=== PATIENT | male | born 1935 | race African-American/Black ===

== ENCOUNTER 2021-03-03 04:44 | Inpatient (IN) | payer MEDICARE ==
[~2021-03-03] VITALS: Ht 185.4 cm; Wt 83.6 kg
[2021-03-03] MEDS ORDERED: SODIUM CHLORIDE 0.9% 1,000 ML IV ONE (05:15)
[2021-03-03 05:16] LABS: BASOPHILS % (AUTO) 0.6 % (0.0-2.0); EOSINOPHILS % (AUTO) 1.2 % (1.0-6.0); HEMOGLOBIN 13.7 g/dL (13.5-17.5); LYMPHOCYTES # (AUTO) 2.9 K/uL (1.0-4.8); LYMPHOCYTES % (AUTO) 34.2 % (22.0-44.0); MEAN CORPUSCULAR HEMOGLOBIN 27.2 pg (26.0-34.0); MEAN CORPUSCULAR HGB CONC 33.5 G/dL (31.0-37.0); MEAN CORPUSCULAR VOLUME 81 fL (80-100); MONOCYTES # (AUTO) 0.9 K/uL (0.1-1.0); MONOCYTES % (AUTO) 10.6 % (2.0-9.0); NEUTROPHILS # (AUTO) 4.5 K/uL (1.8-7.7); NEUTROPHILS % (AUTO) 53.4 % (40.0-70.0); PLATELET COUNT (AUTO) 521 K/uL (150-450); RED BLOOD CELL COUNT(AUTO) 5.05 MIL/uL (4.50-5.90); RED CELL DISTRIBUTION WIDTH 13.6 % (11.5-14.5)
[2021-03-03 05:24] LABS: ANION GAP 12 mmol/L (8-16); CALCIUM, TOTAL 9.3 mg/dL (8.8-10.5); CARBON DIOXIDE 25 mmol/L (22-29); CHLORIDE 98 mmol/L (98-107); CREATININE 1.56 mg/dL (0.60-1.30); GLOMERULAR FILTR. RATE CALC 43 mL/min (>60); GLUCOSE,RANDOM 215 mg/dL (70-110); POTASSIUM 4.4 mmol/L (3.5-5.1); SODIUM SERUM 135 mmol/L (136-145); UREA NITROGEN, BLOOD 16 mg/dL (7-18)
[2021-03-03 05:29] LABS: INR 1.1 (0.9-1.1); PROTHROMBIN TIME 11.5 SEC (9.4-11.6)
[2021-03-03 05:30] LABS: ALANINE AMINOTRANSFERASE 75 U/L (12-78); ALBUMIN 2.6 g/dL (3.4-5.0); ALKALINE PHOSPHATASE 101 U/L (46-116); ASPARTATE AMINOTRANSFERASE 39 U/L (15-37); BILIRUBIN,TOTAL 0.7 mg/dL (0.1-1.0); CREATINE KINASE, TOTAL ONLY 54 U/L (39-308); TOTAL PROTEIN, SERUM 7.9 g/dL (6.4-8.2)
[2021-03-03 05:45] LABS: COVID AG,FIA SOURCE NASAL SWAB
[2021-03-03 05:45] LABS: B-TYPE NATRIURETIC PEPTIDE 21 pg/mL (0-100)
[2021-03-03] MEDS ORDERED: LIDOCAINE 1% 10 ML VIAL ONE (05:45)
[2021-03-03 06:23] LABS: LACTIC ACID 4.1 mmol/L (0.4-2.0)
[2021-03-03] MEDS ORDERED: ONDANSETRON HCL 4 MG/2 ML VIAL IVP ONE (07:45)
[2021-03-03] MEDS ORDERED: ONDANSETRON HCL 4 MG/2 ML VIAL IVP PRN ×2 (07:45→22:00)
[2021-03-03] MEDS: MORPHINE SULFATE 2 MG/ML SYRINGE IVP PRN ×2 (07:49→15:30)
[2021-03-03 11:09] LABS: APPEARANCE,URINE CLEAR (CLEAR); BILIRUBIN,URINE NEGATIVE (NEGATIVE); GLUCOSE, URINE (UA) NEGATIVE (NEGATIVE); KETONES,URINE 15 mg/dL (NEGATIVE); LEUKOCYTE ESTERASE ,URINE NEGATIVE (NEGATIVE); NITRATE,URINE NEGATIVE (NEGATIVE); OCCULT BLOOD,URINE NEGATIVE (NEGATIVE); PROTEIN,URINE NEGATIVE (NEGATIVE)
[2021-03-03 11:21] LABS: GLUCOSE,POINT OF CARE 121 MG/DL (70-110)
[2021-03-03 16:24] VITALS: BP 133/72
[2021-03-03] MEDS ORDERED: DEXTROSE 50%-WATER 25 GM/50 ML SYRINGE IVP PRN ×2 (18:15→22:00)
[2021-03-03] MEDS: DEXAMETHASONE 4 MG TABLET PO SCH (18:25)
[2021-03-03 18:41] LABS: GLUCOMETER DEV NAME(LOC) 5N.1C; GLUCOSE,POINT OF CARE 117 MG/DL (70-110)
[2021-03-03 19:59] VITALS: BP 126/82
[2021-03-03] MEDS: INSULIN LISPRO 100 UNITS/ML SQ PRN (21:06)
[2021-03-03] MEDS ORDERED: IPRATROPIUM BROMIDE 0.5 MG/2.5 ML NEB SOLUTION NEB PRN (22:00)
[2021-03-03] MEDS ORDERED: ACETAMINOPHEN 325 MG TABLET PO PRN ×2 (22:00→22:15)
[2021-03-03] MEDS ORDERED: BISACODYL 10 MG RECTAL RECTAL SUPPOSITORY PR PRN (22:00)
[2021-03-03] MEDS ORDERED: ALBUTEROL SULFATE 2.5 MG/0.5 ML NEB SOLUTION NEB PRN (22:00)
[2021-03-03] MEDS ORDERED: ZOLPIDEM TARTRATE 5 MG TABLET PO PRN (22:00)
[2021-03-03] MEDS ORDERED: MAGNESIUM HYDROXIDE SUSPENSION 30 ML UDCUP PO PRN (22:00)
[2021-03-03 23:04] VITALS: BP 140/95
[2021-03-03] MEDS ORDERED: ASPI-1450 PO (23:14)
[2021-03-03] MEDS ORDERED: AMLO-257 PO (23:14)
[2021-03-03] MEDS ORDERED: SIMV-260 PO (23:14)
[2021-03-03] MEDS ORDERED: CHOL200016 PO (23:14)
[2021-03-03] MEDS ORDERED: GLIP10 PO (23:14)
[2021-03-03] MEDS ORDERED: SPIR-37 PO (23:14)
[2021-03-03] MEDS: GuaiFENesin/D-METHORPHAN [SUGAR-FREE] 200-20MG/10 ML SYRUP UDCUP PO PRN (23:21)
[2021-03-03] MEDS: HEPARIN SODIUM,PORCINE 5,000 UNITS/ML VIAL SQ SCH (23:22)
[2021-03-04 04:18] VITALS: BP 145/75
[2021-03-04] MEDS: INSULIN LISPRO 100 UNITS/ML SQ PRN ×3 (05:45→17:36)
[2021-03-04 07:21] LABS: GLUCOMETER DEV NAME(LOC) 5N.1C; GLUCOSE,POINT OF CARE 144 MG/DL (70-110)
[2021-03-04 07:21] LABS: GLUCOMETER DEV NAME(LOC) 5N.1C; GLUCOSE,POINT OF CARE 166 MG/DL (70-110)
[2021-03-04] MEDS: DEXAMETHASONE 4 MG TABLET PO SCH (08:23)
[2021-03-04] MEDS: PANTOPRAZOLE SODIUM 40 MG/VIAL IVP SCH (08:23)
[2021-03-04] MEDS: DOCUSATE SODIUM 100 MG CAPSULE PO SCH ×2 (08:23→21:55)
[2021-03-04] MEDS: HEPARIN SODIUM,PORCINE 5,000 UNITS/ML VIAL SQ SCH ×2 (08:23→15:59)
[2021-03-04 09:13] VITALS: BP 131/84
[2021-03-04 12:42] LABS: GLUCOMETER DEV NAME(LOC) 5S.1; GLUCOSE,POINT OF CARE 163 MG/DL (70-110)
[2021-03-04 12:46] VITALS: BP 148/82
[2021-03-04] MEDS: GuaiFENesin/D-METHORPHAN [SUGAR-FREE] 200-20MG/10 ML SYRUP UDCUP PO PRN (13:43)
[2021-03-04 16:00] VITALS: BP 150/92
[2021-03-04 18:12] LABS: GLUCOMETER DEV NAME(LOC) 5S.1; GLUCOSE,POINT OF CARE 183 MG/DL (70-110)
[2021-03-04] MEDS: MORPHINE SULFATE 2 MG/ML SYRINGE IVP PRN (19:04)
[2021-03-04 19:29] VITALS: BP 127/60
[2021-03-04] MEDS ORDERED: BENZONATATE 100 MG CAPSULE PO PRN (20:00)
[2021-03-04 21:51] LABS: GLUCOMETER DEV NAME(LOC) 5N.1C; GLUCOSE,POINT OF CARE 151 MG/DL (70-110)
[2021-03-04] MEDS: GuaiFENesin/D-METHORPHAN [SUGAR-FREE] 200-20MG/10 ML SYRUP UDCUP PO SCH (21:55)
[2021-03-04 23:24] VITALS: BP 149/81
[2021-03-05] MEDS: GuaiFENesin/D-METHORPHAN [SUGAR-FREE] 200-20MG/10 ML SYRUP UDCUP PO SCH ×6 (00:19→20:00)
[2021-03-05] MEDS: HEPARIN SODIUM,PORCINE 5,000 UNITS/ML VIAL SQ SCH ×3 (00:20→15:52)
[2021-03-05] MEDS: IPRATROPIUM BROMIDE 0.5 MG/2.5 ML NEB SOLUTION NEB SCH ×5 (00:24→20:13)
[2021-03-05] MEDS: ALBUTEROL SULFATE 2.5 MG/0.5 ML NEB SOLUTION NEB SCH ×5 (00:24→20:13)
[2021-03-05] MEDS: MORPHINE SULFATE 2 MG/ML SYRINGE IVP PRN ×2 (02:08→08:13)
[2021-03-05 03:35] VITALS: BP 124/81
[2021-03-05 06:41] LABS: GLUCOMETER DEV NAME(LOC) 5S.1; GLUCOSE,POINT OF CARE 161 MG/DL (70-110)
[2021-03-05] MEDS: BENZONATATE 100 MG CAPSULE PO SCH ×3 (07:44→20:35)
[2021-03-05] MEDS: DOCUSATE SODIUM 100 MG CAPSULE PO SCH ×2 (07:44→20:35)
[2021-03-05] MEDS: DEXAMETHASONE 4 MG TABLET PO SCH (07:44)
[2021-03-05 07:55] VITALS: BP 135/78
[2021-03-05] MEDS: PANTOPRAZOLE SODIUM 40 MG/VIAL IVP SCH (08:09)
[2021-03-05 08:43] LABS: ANION GAP 7 mmol/L (8-16); CALCIUM, TOTAL 9.4 mg/dL (8.8-10.5); CARBON DIOXIDE 28 mmol/L (22-29); CHLORIDE 101 mmol/L (98-107); CREATININE 1.32 mg/dL (0.60-1.30); GLUCOSE,RANDOM 200 mg/dL (70-110); SODIUM SERUM 136 mmol/L (136-145); UREA NITROGEN, BLOOD 24 mg/dL (7-18)
[2021-03-05 09:00] LABS: ALANINE AMINOTRANSFERASE 46 U/L (12-78); ALBUMIN 2.5 g/dL (3.4-5.0); ALKALINE PHOSPHATASE 82 U/L (46-116); ASPARTATE AMINOTRANSFERASE 19 U/L (15-37); BILIRUBIN,TOTAL 0.5 mg/dL (0.1-1.0); C-REACTIVE PROTEIN QUANT 5.38 mg/dL (0.00-0.30); CREATINE KINASE, TOTAL ONLY 56 U/L (39-308); FERRITIN 962 ng/mL (26-388); LACTATE DEHYDROGENASE 235 U/L (85-227); TOTAL PROTEIN, SERUM 7.8 g/dL (6.4-8.2)
[2021-03-05] MEDS ORDERED: BENZONATATE 100 MG CAPSULE PO SCH (09:00)
[2021-03-05 09:06] LABS: GLOMERULAR FILTR. RATE CALC > 60 mL/min (>60)
[2021-03-05 11:18] VITALS: BP 115/78
[2021-03-05] MEDS: DEXAMETHASONE SOD PHOS 4 MG/ML VIAL IVP SCH (12:50)
[2021-03-05] MEDS: PIPERACILLIN/TAZO 3.375 GM/D5W 50 ML IV SCH ×2 (12:50→18:08)
[2021-03-05] MEDS ORDERED: REMDESIVIR 200 MG in SODIUM CHLORIDE 0.9% 250 ML IV ONE (13:00)
[2021-03-05 14:53] LABS: CALCIUM, TOTAL 9.4 mg/dL (8.8-10.5); CREATININE 1.45 mg/dL (0.60-1.30); POTASSIUM 4.3 mmol/L (3.5-5.1)
[2021-03-05 15:00] LABS: ALBUMIN 2.6 g/dL (3.4-5.0); BILIRUBIN,TOTAL 0.5 mg/dL (0.1-1.0); TOTAL PROTEIN, SERUM 7.6 g/dL (6.4-8.2)
[2021-03-05 16:00] VITALS: BP 159/73
[2021-03-05] MEDS ORDERED: MIDAZOLAM HCL 2 MG/2 ML VIAL ONE (19:07)
[2021-03-05] MEDS ORDERED: FentaNYL CITRATE PF 100 MCG/2 ML VIAL ONE (19:07)
[2021-03-05] MEDS ORDERED: MIDAZOLAM HCL 2 MG/2 ML VIAL IM ONE (19:15)
[2021-03-05] MEDS ORDERED: FentaNYL CITRATE PF 100 MCG/2 ML VIAL IVP ONE ×3 (19:15→21:30)
[2021-03-05 20:00] VITALS: BP 154/113
[2021-03-05] MEDS: DEXMEDETOMIDINE HCL 400 MCG in SODIUM CHLORIDE 0.9% 96 ML IV PRN (21:17)
[2021-03-06] VITALS: BP 97/46
[2021-03-06] MEDS: MORPHINE SULFATE 2 MG/ML SYRINGE IVP PRN ×3 (00:17→10:45)
[2021-03-06] MEDS: HEPARIN SODIUM,PORCINE 5,000 UNITS/ML VIAL SQ SCH ×3 (00:17→16:02)
[2021-03-06] MEDS: INSULIN LISPRO 100 UNITS/ML SQ PRN ×4 (00:19→17:18)
[2021-03-06] MEDS: PIPERACILLIN/TAZO 3.375 GM/D5W 50 ML IV SCH ×4 (00:52→18:15)
[2021-03-06] MEDS ORDERED: SODIUM CHLORIDE 0.9% 250 ML IV ONE (00:54)
[2021-03-06 02:36] LABS: GLUCOSE,POINT OF CARE 170 MG/DL (70-110)
[2021-03-06] MEDS ORDERED: MIDAZOLAM HCL 2 MG/2 ML VIAL IVP ONE (03:00)
[2021-03-06] MEDS ORDERED: LIDOCAINE 1% 10 ML VIAL SQ ONE (03:00)
[2021-03-06] MEDS ORDERED: FentaNYL CITRATE PF 100 MCG/2 ML VIAL IVP ONE (03:00)
[2021-03-06] MEDS: ALBUTEROL SULFATE 2.5 MG/0.5 ML NEB SOLUTION NEB SCH ×4 (03:00→20:22)
[2021-03-06] MEDS: IPRATROPIUM BROMIDE 0.5 MG/2.5 ML NEB SOLUTION NEB SCH ×4 (03:01→20:22)
[2021-03-06] MEDS ORDERED: LIDOCAINE/PF 1% 5 ML VIAL ONE (03:18)
[2021-03-06 04:00] VITALS: BP 119/71
[2021-03-06] MEDS: GuaiFENesin/D-METHORPHAN [SUGAR-FREE] 200-20MG/10 ML SYRUP UDCUP PO SCH ×6 (04:00→20:00)
[2021-03-06 05:59] LABS: BASOPHILS % (AUTO) 0.5 % (0.0-2.0); EOSINOPHILS % (AUTO) 0.7 % (1.0-6.0); HEMATOCRIT 40.4 % (41-53); HEMOGLOBIN 13.3 g/dL (13.5-17.5); LYMPHOCYTES % (AUTO) 13.2 % (22.0-44.0); MEAN CORPUSCULAR HEMOGLOBIN 26.9 pg (26.0-34.0); MEAN CORPUSCULAR VOLUME 81 fL (80-100); MONOCYTES # (AUTO) 0.9 K/uL (0.1-1.0); MONOCYTES % (AUTO) 11.8 % (2.0-9.0); NEUTROPHILS # (AUTO) 5.6 K/uL (1.8-7.7); NEUTROPHILS % (AUTO) 73.8 % (40.0-70.0); PLATELET COUNT (AUTO) 454 K/uL (150-450); RED BLOOD CELL COUNT(AUTO) 4.96 MIL/uL (4.50-5.90); RED CELL DISTRIBUTION WIDTH 13.7 % (11.5-14.5)
[2021-03-06 06:28] LABS: ALBUMIN 2.3 g/dL (3.4-5.0); BILIRUBIN,TOTAL 0.6 mg/dL (0.1-1.0); CALCIUM, TOTAL 9.1 mg/dL (8.8-10.5); CREATININE 1.52 mg/dL (0.60-1.30); POTASSIUM 4.4 mmol/L (3.5-5.1)
[2021-03-06 08:00] VITALS: BP 136/52
[2021-03-06 08:22] LABS: GLUCOMETER DEV NAME(LOC) 5N.1C; GLUCOSE,POINT OF CARE 192 MG/DL (70-110)
[2021-03-06] MEDS: DEXAMETHASONE SOD PHOS 4 MG/ML VIAL IVP SCH (08:35)
[2021-03-06] MEDS: PANTOPRAZOLE SODIUM 40 MG/VIAL IVP SCH (08:36)
[2021-03-06] MEDS: DOCUSATE SODIUM 100 MG CAPSULE PO SCH ×2 (08:36→21:00)
[2021-03-06] MEDS: BENZONATATE 100 MG CAPSULE PO SCH ×3 (08:36→21:00)
[2021-03-06 11:06] LABS: GLUCOSE,POINT OF CARE 172 MG/DL (70-110)
[2021-03-06] MEDS: DEXMEDETOMIDINE HCL 400 MCG in SODIUM CHLORIDE 0.9% 96 ML IV PRN ×2 (11:46→18:24)
[2021-03-06 12:00] VITALS: BP 116/59
[2021-03-06] MEDS: REMDESIVIR 100 MG in SODIUM CHLORIDE 0.9% 250 ML IV SCH (14:57)
[2021-03-06 16:00] VITALS: BP 133/50
[2021-03-06 17:21] LABS: GLUCOSE,POINT OF CARE 207 MG/DL (70-110)
[2021-03-06 20:00] VITALS: BP 149/73
[2021-03-06 20:52] LABS: GLUCOSE,POINT OF CARE 218 MG/DL (70-110)
[2021-03-07] VITALS: BP 164/88
[2021-03-07] MEDS: PIPERACILLIN/TAZO 3.375 GM/D5W 50 ML IV SCH ×5 (00:16→23:33)
[2021-03-07] MEDS: HEPARIN SODIUM,PORCINE 5,000 UNITS/ML VIAL SQ SCH ×4 (00:16→23:33)
[2021-03-07 01:05] LABS: GLUCOSE,POINT OF CARE 179 MG/DL (70-110)
[2021-03-07] MEDS: DEXMEDETOMIDINE HCL 400 MCG in SODIUM CHLORIDE 0.9% 96 ML IV PRN ×3 (01:54→15:10)
[2021-03-07] MEDS: IPRATROPIUM BROMIDE 0.5 MG/2.5 ML NEB SOLUTION NEB SCH ×4 (02:38→20:00)
[2021-03-07] MEDS: ALBUTEROL SULFATE 2.5 MG/0.5 ML NEB SOLUTION NEB SCH ×4 (02:38→23:03)
[2021-03-07 04:00] VITALS: BP 120/73
[2021-03-07] MEDS: GuaiFENesin/D-METHORPHAN [SUGAR-FREE] 200-20MG/10 ML SYRUP UDCUP PO SCH ×7 (04:00→23:29)
[2021-03-07 05:38] LABS: BASOPHILS % (AUTO) 0.1 % (0.0-2.0); EOSINOPHILS % (AUTO) 0.8 % (1.0-6.0); HEMATOCRIT 40.1 % (41-53); HEMOGLOBIN 13.4 g/dL (13.5-17.5); LYMPHOCYTES # (AUTO) 1.1 K/uL (1.0-4.8); LYMPHOCYTES % (AUTO) 16.6 % (22.0-44.0); MEAN CORPUSCULAR HEMOGLOBIN 27.4 pg (26.0-34.0); MEAN CORPUSCULAR HGB CONC 33.5 G/dL (31.0-37.0); MEAN CORPUSCULAR VOLUME 82 fL (80-100); MONOCYTES # (AUTO) 1.2 K/uL (0.1-1.0); MONOCYTES % (AUTO) 18.1 % (2.0-9.0); NEUTROPHILS # (AUTO) 4.3 K/uL (1.8-7.7); NEUTROPHILS % (AUTO) 64.4 % (40.0-70.0); PLATELET COUNT (AUTO) 374 K/uL (150-450); RED CELL DISTRIBUTION WIDTH 13.6 % (11.5-14.5)
[2021-03-07 05:56] LABS: ALANINE AMINOTRANSFERASE 32 U/L (12-78); ALBUMIN 2.2 g/dL (3.4-5.0); ALKALINE PHOSPHATASE 61 U/L (46-116); ANION GAP 4 mmol/L (8-16); ASPARTATE AMINOTRANSFERASE 17 U/L (15-37); BILIRUBIN,TOTAL 0.4 mg/dL (0.1-1.0); C-REACTIVE PROTEIN QUANT 9.74 mg/dL (0.00-0.30); CALCIUM, TOTAL 9.1 mg/dL (8.8-10.5); CARBON DIOXIDE 29 mmol/L (22-29); CHLORIDE 105 mmol/L (98-107); CREATININE 1.24 mg/dL (0.60-1.30); GLOMERULAR FILTR. RATE CALC > 60 mL/min (>60); GLUCOSE,RANDOM 191 mg/dL (70-110); POTASSIUM 4.6 mmol/L (3.5-5.1); SODIUM SERUM 138 mmol/L (136-145); TOTAL PROTEIN, SERUM 6.9 g/dL (6.4-8.2); UREA NITROGEN, BLOOD 23 mg/dL (7-18)
[2021-03-07 06:21] LABS: GLUCOSE,POINT OF CARE 165 MG/DL (70-110)
[2021-03-07] MEDS: INSULIN LISPRO 100 UNITS/ML SQ PRN ×5 (06:29→23:54)
[2021-03-07] MEDS: PANTOPRAZOLE SODIUM 40 MG/VIAL IVP SCH (07:56)
[2021-03-07] MEDS: DEXAMETHASONE SOD PHOS 4 MG/ML VIAL IVP SCH (07:57)
[2021-03-07] MEDS: BENZONATATE 100 MG CAPSULE PO SCH ×3 (07:58→21:00)
[2021-03-07] MEDS: DOCUSATE SODIUM 100 MG CAPSULE PO SCH ×2 (07:58→21:00)
[2021-03-07 08:00] VITALS: BP 129/63
[2021-03-07 12:00] VITALS: BP 153/92
[2021-03-07 12:56] LABS: GLUCOSE,POINT OF CARE 207 MG/DL (70-110)
[2021-03-07] MEDS: REMDESIVIR 100 MG in SODIUM CHLORIDE 0.9% 250 ML IV SCH (15:10)
[2021-03-07 16:00] VITALS: BP 158/91
[2021-03-07 18:21] LABS: GLUCOSE,POINT OF CARE 205 MG/DL (70-110)
[2021-03-07 20:00] VITALS: BP 120/62
[2021-03-07] MEDS ORDERED: SODIUM CHLORIDE 0.9% 250 ML IV ONE (22:48)
[2021-03-08] VITALS: BP 127/61
[2021-03-08] MEDS: DEXMEDETOMIDINE HCL 400 MCG in SODIUM CHLORIDE 0.9% 96 ML IV PRN ×2 (00:46→12:47)
[2021-03-08] MEDS: IPRATROPIUM BROMIDE 0.5 MG/2.5 ML NEB SOLUTION NEB SCH ×4 (02:47→19:41)
[2021-03-08] MEDS: ALBUTEROL SULFATE 2.5 MG/0.5 ML NEB SOLUTION NEB SCH ×4 (02:48→19:41)
[2021-03-08 04:00] VITALS: BP 120/74
[2021-03-08] MEDS: GuaiFENesin/D-METHORPHAN [SUGAR-FREE] 200-20MG/10 ML SYRUP UDCUP PO SCH ×6 (04:00→23:34)
[2021-03-08 05:36] LABS: GLUCOSE,POINT OF CARE 140 MG/DL (70-110)
[2021-03-08 06:14] LABS: BASOPHILS % (AUTO) 0.3 % (0.0-2.0); EOSINOPHILS % (AUTO) 1.7 % (1.0-6.0); HEMATOCRIT 38.7 % (41-53); HEMOGLOBIN 12.9 g/dL (13.5-17.5); LYMPHOCYTES # (AUTO) 1.4 K/uL (1.0-4.8); LYMPHOCYTES % (AUTO) 19.5 % (22.0-44.0); MEAN CORPUSCULAR HGB CONC 33.2 G/dL (31.0-37.0); MEAN CORPUSCULAR VOLUME 81 fL (80-100); MONOCYTES # (AUTO) 0.9 K/uL (0.1-1.0); MONOCYTES % (AUTO) 12.4 % (2.0-9.0); NEUTROPHILS # (AUTO) 4.7 K/uL (1.8-7.7); NEUTROPHILS % (AUTO) 66.1 % (40.0-70.0); PLATELET COUNT (AUTO) 391 K/uL (150-450); RED BLOOD CELL COUNT(AUTO) 4.77 MIL/uL (4.50-5.90); RED CELL DISTRIBUTION WIDTH 13.6 % (11.5-14.5)
[2021-03-08] MEDS: PIPERACILLIN/TAZO 3.375 GM/D5W 50 ML IV SCH ×4 (06:18→23:34)
[2021-03-08 06:37] LABS: GLUCOSE,POINT OF CARE 154 MG/DL (70-110)
[2021-03-08 06:40] LABS: ALANINE AMINOTRANSFERASE 30 U/L (12-78); ALBUMIN 2.1 g/dL (3.4-5.0); ALKALINE PHOSPHATASE 56 U/L (46-116); ANION GAP 8 mmol/L (8-16); ASPARTATE AMINOTRANSFERASE 17 U/L (15-37); BILIRUBIN,TOTAL 0.4 mg/dL (0.1-1.0); CALCIUM, TOTAL 8.9 mg/dL (8.8-10.5); CARBON DIOXIDE 34 mmol/L (22-29); CHLORIDE 104 mmol/L (98-107); CREATININE 1.27 mg/dL (0.60-1.30); GLUCOSE,RANDOM 148 mg/dL (70-110); POTASSIUM 4.6 mmol/L (3.5-5.1); SODIUM SERUM 146 mmol/L (136-145); TOTAL PROTEIN, SERUM 6.7 g/dL (6.4-8.2); UREA NITROGEN, BLOOD 23 mg/dL (7-18)
[2021-03-08 06:45] LABS: GLOMERULAR FILTR. RATE CALC > 60 mL/min (>60)
[2021-03-08 07:35] LABS: C-REACTIVE PROTEIN QUANT 5.86 mg/dL (0.00-0.30); FERRITIN 1274 ng/mL (26-388)
[2021-03-08 08:00] VITALS: BP 125/53
[2021-03-08] MEDS: PANTOPRAZOLE SODIUM 40 MG/VIAL IVP SCH (08:22)
[2021-03-08] MEDS: DEXAMETHASONE SOD PHOS 4 MG/ML VIAL IVP SCH (08:23)
[2021-03-08] MEDS: DOCUSATE SODIUM 100 MG CAPSULE PO SCH ×2 (08:23→20:29)
[2021-03-08] MEDS: HEPARIN SODIUM,PORCINE 5,000 UNITS/ML VIAL SQ SCH ×3 (08:23→23:34)
[2021-03-08] MEDS: BENZONATATE 100 MG CAPSULE PO SCH ×3 (08:23→20:29)
[2021-03-08] MEDS: INSULIN LISPRO 100 UNITS/ML SQ PRN ×3 (12:53→20:42)
[2021-03-08 13:52] VITALS: BP 122/56
[2021-03-08 13:57] LABS: GLUCOSE,POINT OF CARE 196 MG/DL (70-110)
[2021-03-08] MEDS: HYDROCODONE/ACETAMINOPHEN 5-325 MG TABLET PO PRN (15:17)
[2021-03-08] MEDS: REMDESIVIR 100 MG in SODIUM CHLORIDE 0.9% 250 ML IV SCH (15:18)
[2021-03-08 16:00] VITALS: BP 103/66
[2021-03-08 18:51] LABS: GLUCOSE,POINT OF CARE 247 MG/DL (70-110)
[2021-03-08 20:00] VITALS: BP 95/59
[2021-03-09] VITALS (8 sets, daily range): BP systolic 98–146; BP diastolic 55–72
[2021-03-09] MEDS: DEXMEDETOMIDINE HCL 400 MCG in SODIUM CHLORIDE 0.9% 96 ML IV PRN (02:28)
[2021-03-09 02:56] LABS: GLUCOSE,POINT OF CARE 176 MG/DL (70-110)
[2021-03-09] MEDS: IPRATROPIUM BROMIDE 0.5 MG/2.5 ML NEB SOLUTION NEB SCH ×4 (02:57→20:00)
[2021-03-09] MEDS: ALBUTEROL SULFATE 2.5 MG/0.5 ML NEB SOLUTION NEB SCH ×4 (02:57→20:00)
[2021-03-09] MEDS: MORPHINE SULFATE 2 MG/ML SYRINGE IVP PRN ×2 (03:02→08:19)
[2021-03-09] MEDS: GuaiFENesin/D-METHORPHAN [SUGAR-FREE] 200-20MG/10 ML SYRUP UDCUP PO SCH ×5 (03:49→20:34)
[2021-03-09] MEDS: PIPERACILLIN/TAZO 3.375 GM/D5W 50 ML IV SCH ×3 (05:48→17:30)
[2021-03-09 05:49] LABS: BASOPHILS % (AUTO) 0.5 % (0.0-2.0); EOSINOPHILS % (AUTO) 4.1 % (1.0-6.0); HEMATOCRIT 41.9 % (41-53); HEMOGLOBIN 13.7 g/dL (13.5-17.5); LYMPHOCYTES # (AUTO) 1.6 K/uL (1.0-4.8); LYMPHOCYTES % (AUTO) 21.6 % (22.0-44.0); MEAN CORPUSCULAR HEMOGLOBIN 27.2 pg (26.0-34.0); MEAN CORPUSCULAR HGB CONC 32.7 G/dL (31.0-37.0); MEAN CORPUSCULAR VOLUME 83 fL (80-100); MONOCYTES % (AUTO) 13.7 % (2.0-9.0); NEUTROPHILS # (AUTO) 4.4 K/uL (1.8-7.7); NEUTROPHILS % (AUTO) 60.1 % (40.0-70.0); PLATELET COUNT (AUTO) 380 K/uL (150-450); RED BLOOD CELL COUNT(AUTO) 5.03 MIL/uL (4.50-5.90)
[2021-03-09 06:14] LABS: ALANINE AMINOTRANSFERASE 35 U/L (12-78); ALBUMIN 2.1 g/dL (3.4-5.0); ALKALINE PHOSPHATASE 55 U/L (46-116); ANION GAP 5 mmol/L (8-16); ASPARTATE AMINOTRANSFERASE 20 U/L (15-37); BILIRUBIN,TOTAL 0.5 mg/dL (0.1-1.0); CALCIUM, TOTAL 8.9 mg/dL (8.8-10.5); CARBON DIOXIDE 29 mmol/L (22-29); CHLORIDE 104 mmol/L (98-107); CREATININE 1.36 mg/dL (0.60-1.30); GLUCOSE,RANDOM 131 mg/dL (70-110); POTASSIUM 4.3 mmol/L (3.5-5.1); SODIUM SERUM 138 mmol/L (136-145); TOTAL PROTEIN, SERUM 6.7 g/dL (6.4-8.2); UREA NITROGEN, BLOOD 27 mg/dL (7-18)
[2021-03-09 06:16] LABS: GLOMERULAR FILTR. RATE CALC > 60 mL/min (>60)
[2021-03-09 06:56] LABS: GLUCOSE,POINT OF CARE 127 MG/DL (70-110)
[2021-03-09] MEDS: HEPARIN SODIUM,PORCINE 5,000 UNITS/ML VIAL SQ SCH ×2 (08:08→15:43)
[2021-03-09] MEDS: DOCUSATE SODIUM 100 MG CAPSULE PO SCH ×2 (08:10→20:34)
[2021-03-09] MEDS: DEXAMETHASONE SOD PHOS 4 MG/ML VIAL IVP SCH (08:10)
[2021-03-09] MEDS: PANTOPRAZOLE SODIUM 40 MG/VIAL IVP SCH (08:10)
[2021-03-09] MEDS: BENZONATATE 100 MG CAPSULE PO SCH ×3 (08:10→20:34)
[2021-03-09 08:46] LABS: GLUCOSE,POINT OF CARE 133 MG/DL (70-110)
[2021-03-09] MEDS ORDERED: HALOPERIDOL LACTATE 5 MG/ML VIAL IM PRN (10:45)
[2021-03-09 13:06] LABS: MAGNESIUM 1.8 mg/dL (1.80-2.40)
[2021-03-09] MEDS: INSULIN LISPRO 100 UNITS/ML SQ PRN ×3 (13:53→20:42)
[2021-03-09 14:02] LABS: GLUCOSE,POINT OF CARE 230 MG/DL (70-110)
[2021-03-09] MEDS: REMDESIVIR 100 MG in SODIUM CHLORIDE 0.9% 250 ML IV SCH (15:42)
[2021-03-09 18:02] LABS: GLUCOMETER DEV NAME(LOC) 5S.2B; GLUCOSE,POINT OF CARE 203 MG/DL (70-110)
[2021-03-10] MEDS: HEPARIN SODIUM,PORCINE 5,000 UNITS/ML VIAL SQ SCH (00:16)
[2021-03-10] MEDS: GuaiFENesin/D-METHORPHAN [SUGAR-FREE] 200-20MG/10 ML SYRUP UDCUP PO SCH ×6 (00:16→20:41)
[2021-03-10] MEDS: PIPERACILLIN/TAZO 3.375 GM/D5W 50 ML IV SCH ×4 (00:16→17:16)
[2021-03-10] MEDS: IPRATROPIUM BROMIDE 0.5 MG/2.5 ML NEB SOLUTION NEB SCH ×4 (02:00→20:00)
[2021-03-10] MEDS: ALBUTEROL SULFATE 2.5 MG/0.5 ML NEB SOLUTION NEB SCH ×4 (02:00→20:00)
[2021-03-10] MEDS ORDERED: HEPARIN SODIUM,PORCINE 5,000 UNITS/ML VIAL IVP PRN ×3 (03:15)
[2021-03-10] MEDS ORDERED: HEPARIN SODIUM,PORCINE 5,000 UNITS/ML VIAL IVP ONE ×2 (03:15)
[2021-03-10] MEDS ORDERED: HEPARIN SODIUM 25000 UNITS/D5W 250 ML IV PRN (03:15)
[2021-03-10 04:15] VITALS: BP 136/76
[2021-03-10] MEDS: HYDROCODONE/ACETAMINOPHEN 5-325 MG TABLET PO PRN (04:46)
[2021-03-10 06:10] LABS: BASOPHILS % (AUTO) 1.5 % (0.0-2.0); EOSINOPHILS % (AUTO) 5.3 % (1.0-6.0); HEMATOCRIT 37.7 % (41-53); HEMOGLOBIN 12.7 g/dL (13.5-17.5); LYMPHOCYTES # (AUTO) 1.4 K/uL (1.0-4.8); LYMPHOCYTES % (AUTO) 18.7 % (22.0-44.0); MEAN CORPUSCULAR HEMOGLOBIN 27.1 pg (26.0-34.0); MEAN CORPUSCULAR HGB CONC 33.5 G/dL (31.0-37.0); MEAN CORPUSCULAR VOLUME 81 fL (80-100); MONOCYTES # (AUTO) 0.7 K/uL (0.1-1.0); MONOCYTES % (AUTO) 8.6 % (2.0-9.0); NEUTROPHILS # (AUTO) 5.1 K/uL (1.8-7.7); NEUTROPHILS % (AUTO) 65.9 % (40.0-70.0); PLATELET COUNT (AUTO) 436 K/uL (150-450); RED BLOOD CELL COUNT(AUTO) 4.67 MIL/uL (4.50-5.90); RED CELL DISTRIBUTION WIDTH 13.7 % (11.5-14.5)
[2021-03-10 06:26] LABS: INR 1.2 (0.9-1.1); PROTHROMBIN TIME 12.2 SEC (9.4-11.6)
[2021-03-10 07:00] LABS: ALANINE AMINOTRANSFERASE 37 U/L (12-78); ALBUMIN 2.2 g/dL (3.4-5.0); ALKALINE PHOSPHATASE 58 U/L (46-116); ANION GAP 12 mmol/L (8-16); ASPARTATE AMINOTRANSFERASE 19 U/L (15-37); BILIRUBIN,TOTAL 0.6 mg/dL (0.1-1.0); CALCIUM, TOTAL 8.8 mg/dL (8.8-10.5); CARBON DIOXIDE 28 mmol/L (22-29); CHLORIDE 103 mmol/L (98-107); CREATININE 1.25 mg/dL (0.60-1.30); GLUCOSE,RANDOM 120 mg/dL (70-110); POTASSIUM 3.8 mmol/L (3.5-5.1); SODIUM SERUM 143 mmol/L (136-145); TOTAL PROTEIN, SERUM 6.6 g/dL (6.4-8.2); UREA NITROGEN, BLOOD 25 mg/dL (7-18)
[2021-03-10 07:01] LABS: GLOMERULAR FILTR. RATE CALC > 60 mL/min (>60)
[2021-03-10 07:38] VITALS: BP 123/102
[2021-03-10 07:41] LABS: GLUCOMETER DEV NAME(LOC) 5S.2B; GLUCOSE,POINT OF CARE 178 MG/DL (70-110)
[2021-03-10 07:41] LABS: GLUCOMETER DEV NAME(LOC) 5S.1; GLUCOSE,POINT OF CARE 133 MG/DL (70-110)
[2021-03-10] MEDS: FAMOTIDINE 10 MG/ML 2 ML VIAL IVP SCH (08:05)
[2021-03-10] MEDS: BENZONATATE 100 MG CAPSULE PO SCH ×3 (08:05→20:41)
[2021-03-10] MEDS: MULTIVITAMINS, THERAPEUTIC TABLET PO SCH (08:05)
[2021-03-10] MEDS: DEXAMETHASONE SOD PHOS 4 MG/ML VIAL IVP SCH (08:05)
[2021-03-10] MEDS: DOCUSATE SODIUM 100 MG CAPSULE PO SCH ×2 (08:05→20:42)
[2021-03-10] MEDS: SENNA 187 MG TABLET PO SCH (08:06)
[2021-03-10] MEDS: INSULIN LISPRO 100 UNITS/ML SQ PRN ×3 (11:09→20:56)
[2021-03-10 11:55] VITALS: BP 147/84
[2021-03-10] MEDS ORDERED: FentaNYL CITRATE PF 100 MCG/2 ML VIAL ONE (13:08)
[2021-03-10] MEDS ORDERED: FentaNYL CITRATE PF 100 MCG/2 ML VIAL IVP ONE (13:15)
[2021-03-10] MEDS: PROMETH/PHENYLEPHRINE/CODEINE 5 ML ORAL.SYG PO PRN ×2 (15:13→20:49)
[2021-03-10 16:15] VITALS: BP 107/80
[2021-03-10 17:37] LABS: GLUCOMETER DEV NAME(LOC) 5S.1; GLUCOSE,POINT OF CARE 229 MG/DL (70-110)
[2021-03-10 20:35] VITALS: BP 141/76
[2021-03-10] MEDS: ENOXAPARIN SODIUM 80 MG/0.8 ML PF SYRINGE SQ SCH (20:42)
[2021-03-11] VITALS (7 sets, daily range): BP systolic 100–138; BP diastolic 57–82
[2021-03-11] MEDS: GuaiFENesin/D-METHORPHAN [SUGAR-FREE] 200-20MG/10 ML SYRUP UDCUP PO SCH ×5 (00:30→17:32)
[2021-03-11] MEDS: PIPERACILLIN/TAZO 3.375 GM/D5W 50 ML IV SCH ×3 (00:31→11:55)
[2021-03-11] MEDS: ALBUTEROL SULFATE 2.5 MG/0.5 ML NEB SOLUTION NEB SCH ×4 (02:00→20:19)
[2021-03-11] MEDS: IPRATROPIUM BROMIDE 0.5 MG/2.5 ML NEB SOLUTION NEB SCH ×4 (02:00→20:19)
[2021-03-11 03:41] LABS: GLUCOMETER DEV NAME(LOC) 5S.2B; GLUCOSE,POINT OF CARE 210 MG/DL (70-110)
[2021-03-11 03:41] LABS: GLUCOMETER DEV NAME(LOC) 5S.2B; GLUCOSE,POINT OF CARE 164 MG/DL (70-110)
[2021-03-11] MEDS: PROMETH/PHENYLEPHRINE/CODEINE 5 ML ORAL.SYG PO PRN ×3 (03:48→20:24)
[2021-03-11] MEDS: INSULIN LISPRO 100 UNITS/ML SQ PRN ×4 (05:36→20:31)
[2021-03-11 06:38] LABS: BASOPHILS % (AUTO) 0.4 % (0.0-2.0); EOSINOPHILS % (AUTO) 5.6 % (1.0-6.0); HEMATOCRIT 31.6 % (41-53); HEMOGLOBIN 10.6 g/dL (13.5-17.5); LYMPHOCYTES # (AUTO) 1.3 K/uL (1.0-4.8); MEAN CORPUSCULAR HEMOGLOBIN 27.1 pg (26.0-34.0); MEAN CORPUSCULAR HGB CONC 33.6 G/dL (31.0-37.0); MEAN CORPUSCULAR VOLUME 81 fL (80-100); MONOCYTES % (AUTO) 13.6 % (2.0-9.0); NEUTROPHILS # (AUTO) 4.9 K/uL (1.8-7.7); NEUTROPHILS % (AUTO) 63.4 % (40.0-70.0); PLATELET COUNT (AUTO) 362 K/uL (150-450); RED BLOOD CELL COUNT(AUTO) 3.91 MIL/uL (4.50-5.90); RED CELL DISTRIBUTION WIDTH 13.9 % (11.5-14.5)
[2021-03-11 07:17] LABS: ALBUMIN 1.8 g/dL (3.4-5.0); BILIRUBIN,TOTAL 0.4 mg/dL (0.1-1.0); C-REACTIVE PROTEIN QUANT 2.91 mg/dL (0.00-0.30); CALCIUM, TOTAL 7.2 mg/dL (8.8-10.5); CREATININE 1.84 mg/dL (0.60-1.30); POTASSIUM 3.4 mmol/L (3.5-5.1); TOTAL PROTEIN, SERUM 6.8 g/dL (6.4-8.2)
[2021-03-11] MEDS: BENZONATATE 100 MG CAPSULE PO SCH ×2 (07:53→17:32)
[2021-03-11] MEDS: MULTIVITAMINS, THERAPEUTIC TABLET PO SCH (07:53)
[2021-03-11] MEDS: SENNA 187 MG TABLET PO SCH (07:53)
[2021-03-11] MEDS: ENOXAPARIN SODIUM 80 MG/0.8 ML PF SYRINGE SQ SCH ×2 (07:53→20:24)
[2021-03-11] MEDS: DEXAMETHASONE SOD PHOS 4 MG/ML VIAL IVP SCH (07:53)
[2021-03-11] MEDS: FAMOTIDINE 10 MG/ML 2 ML VIAL IVP SCH (07:53)
[2021-03-11] MEDS: DOCUSATE SODIUM 100 MG CAPSULE PO SCH (07:53)
[2021-03-11 09:01] LABS: GLUCOMETER DEV NAME(LOC) 5S.2B; GLUCOSE,POINT OF CARE 149 MG/DL (70-110)
[2021-03-11] MEDS ORDERED: RINGERS SOLUTION,LACTATED 1,000 ML IV ONE (14:30)
[2021-03-11] MEDS ORDERED: DOCUSATE SODIUM 100 MG CAPSULE PO PRN (19:15)
[2021-03-11 20:16] LABS: GLUCOMETER DEV NAME(LOC) 5S.1; GLUCOSE,POINT OF CARE 206 MG/DL (70-110)
[2021-03-11] MEDS: PIPERACILLIN SODIUM/TAZOBACTAM 2.25 GM in DEXTROSE 5%-WATER 50 ML IV SCH (20:24)
[2021-03-11 22:21] LABS: GLUCOMETER DEV NAME(LOC) 5S.2B; GLUCOSE,POINT OF CARE 179 MG/DL (70-110)
[2021-03-11 22:21] LABS: GLUCOMETER DEV NAME(LOC) 5S.2B; GLUCOSE,POINT OF CARE 226 MG/DL (70-110)
[2021-03-11 23:25] LABS: CREATININE,URINE RANDOM 183.6 mg/dL (30.0-125.0)
[2021-03-12] MEDS: IPRATROPIUM BROMIDE 0.5 MG/2.5 ML NEB SOLUTION NEB SCH ×4 (02:31→19:45)
[2021-03-12] MEDS: ALBUTEROL SULFATE 2.5 MG/0.5 ML NEB SOLUTION NEB SCH ×4 (02:31→19:45)
[2021-03-12] MEDS: PIPERACILLIN SODIUM/TAZOBACTAM 2.25 GM in DEXTROSE 5%-WATER 50 ML IV SCH ×4 (03:45→21:06)
[2021-03-12 03:50] VITALS: BP 144/84
[2021-03-12 07:27] VITALS: BP 136/82
[2021-03-12 07:34] LABS: BASOPHILS % (AUTO) 0.3 % (0.0-2.0); HEMOGLOBIN 12.2 g/dL (13.5-17.5); LYMPHOCYTES # (AUTO) 1.6 K/uL (1.0-4.8); MEAN CORPUSCULAR HEMOGLOBIN 27.4 pg (26.0-34.0); MEAN CORPUSCULAR HGB CONC 33.8 G/dL (31.0-37.0); MEAN CORPUSCULAR VOLUME 81 fL (80-100); MONOCYTES # (AUTO) 0.9 K/uL (0.1-1.0); MONOCYTES % (AUTO) 11.3 % (2.0-9.0); NEUTROPHILS # (AUTO) 4.7 K/uL (1.8-7.7); NEUTROPHILS % (AUTO) 62.4 % (40.0-70.0); PLATELET COUNT (AUTO) 326 K/uL (150-450); RED BLOOD CELL COUNT(AUTO) 4.45 MIL/uL (4.50-5.90); RED CELL DISTRIBUTION WIDTH 13.8 % (11.5-14.5)
[2021-03-12 07:51] LABS: ALANINE AMINOTRANSFERASE 35 U/L (12-78); ALBUMIN 2.1 g/dL (3.4-5.0); ALKALINE PHOSPHATASE 68 U/L (46-116); ANION GAP 1 mmol/L (8-16); ASPARTATE AMINOTRANSFERASE 18 U/L (15-37); BILIRUBIN,TOTAL 0.5 mg/dL (0.1-1.0); CALCIUM, TOTAL 8.8 mg/dL (8.8-10.5); CARBON DIOXIDE 34 mmol/L (22-29); CHLORIDE 101 mmol/L (98-107); CREATININE 1.35 mg/dL (0.60-1.30); GLOMERULAR FILTR. RATE CALC > 60 mL/min (>60); GLUCOSE,RANDOM 130 mg/dL (70-110); POTASSIUM 3.9 mmol/L (3.5-5.1); SODIUM SERUM 136 mmol/L (136-145); TOTAL PROTEIN, SERUM 6.1 g/dL (6.4-8.2); UREA NITROGEN, BLOOD 18 mg/dL (7-18)
[2021-03-12] MEDS: SENNA 187 MG TABLET PO SCH (08:24)
[2021-03-12] MEDS: ENOXAPARIN SODIUM 80 MG/0.8 ML PF SYRINGE SQ SCH ×2 (08:37→22:33)
[2021-03-12] MEDS: MULTIVITAMINS, THERAPEUTIC TABLET PO SCH (08:37)
[2021-03-12] MEDS: FAMOTIDINE 10 MG/ML 2 ML VIAL IVP SCH (08:37)
[2021-03-12] MEDS: DEXAMETHASONE SOD PHOS 4 MG/ML VIAL IVP SCH (08:39)
[2021-03-12 11:36] VITALS: BP 145/81
[2021-03-12] MEDS: INSULIN LISPRO 100 UNITS/ML SQ PRN ×3 (12:05→21:16)
[2021-03-12] MEDS ORDERED: SODIUM CHLORIDE 0.9% 1,000 ML ONE (14:58)
[2021-03-12] MEDS: PROMETH/PHENYLEPHRINE/CODEINE 5 ML ORAL.SYG PO PRN ×2 (15:33→15:39)
[2021-03-12 15:39] VITALS: BP 136/82
[2021-03-12 18:12] LABS: GLUCOMETER DEV NAME(LOC) 5S.1; GLUCOSE,POINT OF CARE 204 MG/DL (70-110)
[2021-03-12 18:12] LABS: GLUCOMETER DEV NAME(LOC) 5S.1; GLUCOSE,POINT OF CARE 191 MG/DL (70-110)
[2021-03-12 19:52] VITALS: BP 144/70
[2021-03-12 19:56] LABS: GLUCOMETER DEV NAME(LOC) 5S.2B; GLUCOSE,POINT OF CARE 137 MG/DL (70-110)
[2021-03-12 23:47] VITALS: BP 146/90
[2021-03-13 00:17] LABS: GLUCOMETER DEV NAME(LOC) 5S.2B; GLUCOSE,POINT OF CARE 157 MG/DL (70-110)
[2021-03-13] MEDS: PIPERACILLIN SODIUM/TAZOBACTAM 2.25 GM in DEXTROSE 5%-WATER 50 ML IV SCH ×2 (02:07→08:18)
[2021-03-13] MEDS: IPRATROPIUM BROMIDE 0.5 MG/2.5 ML NEB SOLUTION NEB SCH ×4 (03:15→19:40)
[2021-03-13] MEDS: ALBUTEROL SULFATE 2.5 MG/0.5 ML NEB SOLUTION NEB SCH ×4 (03:15→19:40)
[2021-03-13 05:00] VITALS: BP 146/90
[2021-03-13 07:09] VITALS: BP 144/78
[2021-03-13] MEDS: ENOXAPARIN SODIUM 80 MG/0.8 ML PF SYRINGE SQ SCH ×2 (08:19→20:06)
[2021-03-13] MEDS: SENNA 187 MG TABLET PO SCH (08:19)
[2021-03-13] MEDS: MULTIVITAMINS, THERAPEUTIC TABLET PO SCH (08:19)
[2021-03-13] MEDS: FAMOTIDINE 10 MG/ML 2 ML VIAL IVP SCH (08:19)
[2021-03-13 10:16] LABS: GLUCOMETER DEV NAME(LOC) 5S.2B; GLUCOSE,POINT OF CARE 102 MG/DL (70-110)
[2021-03-13 10:31] VITALS: BP 141/75
[2021-03-13] MEDS: INSULIN LISPRO 100 UNITS/ML SQ PRN ×3 (12:19→20:21)
[2021-03-13] MEDS: PROMETH/PHENYLEPHRINE/CODEINE 5 ML ORAL.SYG PO PRN (13:53)
[2021-03-13 14:42] VITALS: BP 142/82
[2021-03-13] MEDS: PIPERACILLIN/TAZO 3.375 GM/D5W 50 ML IV SCH ×2 (15:34→20:06)
[2021-03-13 19:37] VITALS: BP 131/62
[2021-03-13 21:11] LABS: GLUCOMETER DEV NAME(LOC) 5S.1; GLUCOSE,POINT OF CARE 177 MG/DL (70-110)
[2021-03-13 23:40] VITALS: BP 132/62
[2021-03-14] VITALS (7 sets, daily range): BP systolic 124–145; BP diastolic 58–83
[2021-03-14] MEDS: PIPERACILLIN/TAZO 3.375 GM/D5W 50 ML IV SCH ×4 (01:07→20:44)
[2021-03-14 01:46] LABS: GLUCOMETER DEV NAME(LOC) 5S.2B; GLUCOSE,POINT OF CARE 191 MG/DL (70-110)
[2021-03-14 01:46] LABS: GLUCOMETER DEV NAME(LOC) 5S.2B; GLUCOSE,POINT OF CARE 199 MG/DL (70-110)
[2021-03-14] MEDS: ALBUTEROL SULFATE 2.5 MG/0.5 ML NEB SOLUTION NEB SCH ×4 (02:42→19:48)
[2021-03-14] MEDS: IPRATROPIUM BROMIDE 0.5 MG/2.5 ML NEB SOLUTION NEB SCH ×4 (02:42→19:48)
[2021-03-14] MEDS: PROMETH/PHENYLEPHRINE/CODEINE 5 ML ORAL.SYG PO PRN ×2 (06:04→20:43)
[2021-03-14 07:36] LABS: GLUCOMETER DEV NAME(LOC) 5S.1; GLUCOSE,POINT OF CARE 127 MG/DL (70-110)
[2021-03-14] MEDS: ENOXAPARIN SODIUM 80 MG/0.8 ML PF SYRINGE SQ SCH ×2 (07:39→20:43)
[2021-03-14] MEDS: MULTIVITAMINS, THERAPEUTIC TABLET PO SCH (07:40)
[2021-03-14] MEDS: SENNA 187 MG TABLET PO SCH (07:40)
[2021-03-14] MEDS: FAMOTIDINE 10 MG/ML 2 ML VIAL IVP SCH (07:41)
[2021-03-14 09:29] LABS: ALANINE AMINOTRANSFERASE 40 U/L (12-78); ALKALINE PHOSPHATASE 60 U/L (46-116); ANION GAP 5 mmol/L (8-16); ASPARTATE AMINOTRANSFERASE 26 U/L (15-37); BILIRUBIN,TOTAL 0.6 mg/dL (0.1-1.0); CALCIUM, TOTAL 8.4 mg/dL (8.8-10.5); CARBON DIOXIDE 31 mmol/L (22-29); CHLORIDE 99 mmol/L (98-107); CREATININE 1.23 mg/dL (0.60-1.30); GLUCOSE,RANDOM 192 mg/dL (70-110); POTASSIUM 3.5 mmol/L (3.5-5.1); SODIUM SERUM 135 mmol/L (136-145); TOTAL PROTEIN, SERUM 5.7 g/dL (6.4-8.2); UREA NITROGEN, BLOOD 11 mg/dL (7-18)
[2021-03-14 09:31] LABS: GLOMERULAR FILTR. RATE CALC > 60 mL/min (>60)
[2021-03-14] MEDS: INSULIN LISPRO 100 UNITS/ML SQ PRN ×3 (11:29→20:46)
[2021-03-14 12:28] LABS: BASOPHILS % (AUTO) 0.6 % (0.0-2.0); EOSINOPHILS % (AUTO) 7.2 % (1.0-6.0); HEMATOCRIT 36.6 % (41-53); HEMOGLOBIN 12.3 g/dL (13.5-17.5); LYMPHOCYTES # (AUTO) 1.3 K/uL (1.0-4.8); LYMPHOCYTES % (AUTO) 22.5 % (22.0-44.0); MEAN CORPUSCULAR HEMOGLOBIN 27.3 pg (26.0-34.0); MEAN CORPUSCULAR HGB CONC 33.7 G/dL (31.0-37.0); MEAN CORPUSCULAR VOLUME 81 fL (80-100); MONOCYTES # (AUTO) 0.8 K/uL (0.1-1.0); MONOCYTES % (AUTO) 13.9 % (2.0-9.0); NEUTROPHILS # (AUTO) 3.2 K/uL (1.8-7.7); NEUTROPHILS % (AUTO) 55.8 % (40.0-70.0); PLATELET COUNT (AUTO) 250 K/uL (150-450); RED CELL DISTRIBUTION WIDTH 14.2 % (11.5-14.5)
[2021-03-14] MEDS ORDERED: POTASSIUM CHLORIDE 20 MEQ ER TABLET PO ONE (15:15)
[2021-03-14 21:51] LABS: GLUCOMETER DEV NAME(LOC) 5S.2B; GLUCOSE,POINT OF CARE 192 MG/DL (70-110)
[2021-03-14 21:51] LABS: GLUCOMETER DEV NAME(LOC) 5S.2B; GLUCOSE,POINT OF CARE 196 MG/DL (70-110)
[2021-03-14 22:17] LABS: GLUCOMETER DEV NAME(LOC) 5S.1; GLUCOSE,POINT OF CARE 205 MG/DL (70-110)
[2021-03-15] MEDS: PIPERACILLIN/TAZO 3.375 GM/D5W 50 ML IV SCH ×2 (01:07→08:53)
[2021-03-15] MEDS: IPRATROPIUM BROMIDE 0.5 MG/2.5 ML NEB SOLUTION NEB SCH ×4 (02:00→21:14)
[2021-03-15] MEDS: ALBUTEROL SULFATE 2.5 MG/0.5 ML NEB SOLUTION NEB SCH ×4 (02:00→21:13)
[2021-03-15 04:55] VITALS: BP 126/62
[2021-03-15] MEDS: PROMETH/PHENYLEPHRINE/CODEINE 5 ML ORAL.SYG PO PRN ×2 (06:08→20:49)
[2021-03-15 07:11] LABS: GLUCOMETER DEV NAME(LOC) 5S.2B; GLUCOSE,POINT OF CARE 129 MG/DL (70-110)
[2021-03-15 07:24] VITALS: BP 101/65
[2021-03-15] MEDS: MULTIVITAMINS, THERAPEUTIC TABLET PO SCH (08:53)
[2021-03-15] MEDS: SENNA 187 MG TABLET PO SCH (08:53)
[2021-03-15] MEDS: FAMOTIDINE 10 MG/ML 2 ML VIAL IVP SCH (08:53)
[2021-03-15] MEDS: ENOXAPARIN SODIUM 80 MG/0.8 ML PF SYRINGE SQ SCH ×2 (08:53→20:48)
[2021-03-15 10:04] LABS: BASOPHILS % (AUTO) 0.7 % (0.0-2.0); EOSINOPHILS % (AUTO) 6.6 % (1.0-6.0); HEMATOCRIT 36.3 % (41-53); HEMOGLOBIN 12.3 g/dL (13.5-17.5); LYMPHOCYTES # (AUTO) 1.4 K/uL (1.0-4.8); LYMPHOCYTES % (AUTO) 24.4 % (22.0-44.0); MEAN CORPUSCULAR HEMOGLOBIN 27.5 pg (26.0-34.0); MEAN CORPUSCULAR HGB CONC 33.8 G/dL (31.0-37.0); MEAN CORPUSCULAR VOLUME 81 fL (80-100); MONOCYTES # (AUTO) 0.9 K/uL (0.1-1.0); MONOCYTES % (AUTO) 16.3 % (2.0-9.0); NEUTROPHILS # (AUTO) 2.9 K/uL (1.8-7.7); PLATELET COUNT (AUTO) 205 K/uL (150-450); RED BLOOD CELL COUNT(AUTO) 4.46 MIL/uL (4.50-5.90); RED CELL DISTRIBUTION WIDTH 14.1 % (11.5-14.5)
[2021-03-15 10:20] LABS: ALANINE AMINOTRANSFERASE 48 U/L (12-78); ALKALINE PHOSPHATASE 60 U/L (46-116); ANION GAP 2 mmol/L (8-16); ASPARTATE AMINOTRANSFERASE 32 U/L (15-37); BILIRUBIN,TOTAL 0.5 mg/dL (0.1-1.0); CALCIUM, TOTAL 8.6 mg/dL (8.8-10.5); CARBON DIOXIDE 32 mmol/L (22-29); CHLORIDE 102 mmol/L (98-107); CREATININE 1.23 mg/dL (0.60-1.30); GLUCOSE,RANDOM 161 mg/dL (70-110); POTASSIUM 3.7 mmol/L (3.5-5.1); SODIUM SERUM 136 mmol/L (136-145); UREA NITROGEN, BLOOD 9 mg/dL (7-18)
[2021-03-15 10:21] LABS: GLOMERULAR FILTR. RATE CALC > 60 mL/min (>60)
[2021-03-15 10:43] VITALS: BP 114/66
[2021-03-15] MEDS: INSULIN LISPRO 100 UNITS/ML SQ PRN ×2 (12:31→20:54)
[2021-03-15 13:06] LABS: GLUCOMETER DEV NAME(LOC) 5S.1; GLUCOSE,POINT OF CARE 201 MG/DL (70-110)
[2021-03-15 19:53] VITALS: BP 115/66
[2021-03-15 20:06] LABS: GLUCOMETER DEV NAME(LOC) 5S.2B; GLUCOSE,POINT OF CARE 133 MG/DL (70-110)
[2021-03-15 21:56] LABS: GLUCOMETER DEV NAME(LOC) 5S.1; GLUCOSE,POINT OF CARE 155 MG/DL (70-110)
[2021-03-15 23:26] VITALS: BP 115/59
[2021-03-16] MEDS: IPRATROPIUM BROMIDE 0.5 MG/2.5 ML NEB SOLUTION NEB SCH ×4 (02:47→19:18)
[2021-03-16] MEDS: ALBUTEROL SULFATE 2.5 MG/0.5 ML NEB SOLUTION NEB SCH ×4 (02:48→19:18)
[2021-03-16 04:16] VITALS: BP 108/74
[2021-03-16] MEDS: PROMETH/PHENYLEPHRINE/CODEINE 5 ML ORAL.SYG PO PRN ×3 (05:41→21:23)
[2021-03-16 07:02] LABS: GLUCOMETER DEV NAME(LOC) 5S.1; GLUCOSE,POINT OF CARE 129 MG/DL (70-110)
[2021-03-16 07:23] VITALS: BP 129/62
[2021-03-16] MEDS: ENOXAPARIN SODIUM 80 MG/0.8 ML PF SYRINGE SQ SCH ×2 (08:11→21:23)
[2021-03-16] MEDS: SENNA 187 MG TABLET PO SCH (08:12)
[2021-03-16] MEDS: FAMOTIDINE 10 MG/ML 2 ML VIAL IVP SCH (08:12)
[2021-03-16] MEDS: MULTIVITAMINS, THERAPEUTIC TABLET PO SCH (08:12)
[2021-03-16 11:19] VITALS: BP 120/74
[2021-03-16 12:41] LABS: GLUCOMETER DEV NAME(LOC) 5N.1C; GLUCOSE,POINT OF CARE 138 MG/DL (70-110)
[2021-03-16] MEDS: INSULIN LISPRO 100 UNITS/ML SQ PRN (17:46)
[2021-03-16 19:45] VITALS: BP 100/65
[2021-03-16 21:06] LABS: GLUCOMETER DEV NAME(LOC) 5S.1; GLUCOSE,POINT OF CARE 124 MG/DL (70-110)
[2021-03-16 21:41] LABS: GLUCOMETER DEV NAME(LOC) 5N.3; GLUCOSE,POINT OF CARE 158 MG/DL (70-110)
[2021-03-17] VITALS (7 sets, daily range): BP systolic 108–121; BP diastolic 45–80
[2021-03-17] MEDS: PROMETH/PHENYLEPHRINE/CODEINE 5 ML ORAL.SYG PO PRN ×4 (02:15→17:20)
[2021-03-17] MEDS: IPRATROPIUM BROMIDE 0.5 MG/2.5 ML NEB SOLUTION NEB SCH ×4 (03:04→19:43)
[2021-03-17] MEDS: ALBUTEROL SULFATE 2.5 MG/0.5 ML NEB SOLUTION NEB SCH ×4 (03:04→19:43)
[2021-03-17 06:40] LABS: GLUCOMETER DEV NAME(LOC) 5N.3; GLUCOSE,POINT OF CARE 123 MG/DL (70-110)
[2021-03-17] MEDS: SENNA 187 MG TABLET PO SCH (08:25)
[2021-03-17] MEDS: FAMOTIDINE 10 MG/ML 2 ML VIAL IVP SCH (08:25)
[2021-03-17] MEDS: ENOXAPARIN SODIUM 80 MG/0.8 ML PF SYRINGE SQ SCH ×2 (08:25→20:49)
[2021-03-17] MEDS: MULTIVITAMINS, THERAPEUTIC TABLET PO SCH (08:25)
[2021-03-17] MEDS: HYDROCODONE/ACETAMINOPHEN 5-325 MG TABLET PO PRN (08:26)
[2021-03-17] MEDS: INSULIN LISPRO 100 UNITS/ML SQ PRN ×2 (11:43→21:01)
[2021-03-17 19:21] LABS: GLUCOMETER DEV NAME(LOC) 5S.1; GLUCOSE,POINT OF CARE 136 MG/DL (70-110)
[2021-03-18] MEDS: ALBUTEROL SULFATE 2.5 MG/0.5 ML NEB SOLUTION NEB SCH ×4 (03:17→20:01)
[2021-03-18] MEDS: IPRATROPIUM BROMIDE 0.5 MG/2.5 ML NEB SOLUTION NEB SCH ×4 (03:17→20:01)
[2021-03-18 05:23] VITALS: BP 113/63
[2021-03-18] MEDS: INSULIN LISPRO 100 UNITS/ML SQ PRN ×2 (06:35→17:37)
[2021-03-18 06:36] LABS: GLUCOMETER DEV NAME(LOC) 5N.3; GLUCOSE,POINT OF CARE 183 MG/DL (70-110)
[2021-03-18 06:36] LABS: GLUCOMETER DEV NAME(LOC) 5N.3; GLUCOSE,POINT OF CARE 156 MG/DL (70-110)
[2021-03-18] MEDS: PROMETH/PHENYLEPHRINE/CODEINE 5 ML ORAL.SYG PO PRN ×3 (06:36→17:29)
[2021-03-18 07:30] VITALS: BP 124/76
[2021-03-18] MEDS: FAMOTIDINE 10 MG/ML 2 ML VIAL IVP SCH (08:14)
[2021-03-18] MEDS: MULTIVITAMINS, THERAPEUTIC TABLET PO SCH (08:14)
[2021-03-18] MEDS: ENOXAPARIN SODIUM 80 MG/0.8 ML PF SYRINGE SQ SCH ×2 (08:14→19:53)
[2021-03-18] MEDS: SENNA 187 MG TABLET PO SCH (08:14)
[2021-03-18 11:21] VITALS: BP 120/64
[2021-03-18 11:36] LABS: GLUCOMETER DEV NAME(LOC) 5N.1C; GLUCOSE,POINT OF CARE 140 MG/DL (70-110)
[2021-03-18 16:24] VITALS: BP 121/49
[2021-03-18 18:06] LABS: GLUCOMETER DEV NAME(LOC) 5N.1C; GLUCOSE,POINT OF CARE 143 MG/DL (70-110)
[2021-03-18 20:16] LABS: GLUCOMETER DEV NAME(LOC) 5N.1C; GLUCOSE,POINT OF CARE 102 MG/DL (70-110)
[2021-03-18 21:22] VITALS: BP 119/63
[2021-03-19] VITALS (7 sets, daily range): BP systolic 105–133; BP diastolic 54–73
[2021-03-19] MEDS: ALBUTEROL SULFATE 2.5 MG/0.5 ML NEB SOLUTION NEB SCH ×4 (02:42→19:47)
[2021-03-19] MEDS: IPRATROPIUM BROMIDE 0.5 MG/2.5 ML NEB SOLUTION NEB SCH ×4 (02:42→19:47)
[2021-03-19 07:10] LABS: GLUCOMETER DEV NAME(LOC) 5N.1C; GLUCOSE,POINT OF CARE 133 MG/DL (70-110)
[2021-03-19] MEDS: FAMOTIDINE 10 MG/ML 2 ML VIAL IVP SCH (08:33)
[2021-03-19] MEDS: ENOXAPARIN SODIUM 80 MG/0.8 ML PF SYRINGE SQ SCH ×2 (08:33→20:18)
[2021-03-19] MEDS: SENNA 187 MG TABLET PO SCH (08:33)
[2021-03-19] MEDS: MULTIVITAMINS, THERAPEUTIC TABLET PO SCH (08:33)
[2021-03-19 15:17] LABS: BASOPHILS % (AUTO) 1.2 % (0.0-2.0); EOSINOPHILS % (AUTO) 1.7 % (1.0-6.0); HEMATOCRIT 32.5 % (41-53); HEMOGLOBIN 10.7 g/dL (13.5-17.5); LYMPHOCYTES # (AUTO) 1.1 K/uL (1.0-4.8); LYMPHOCYTES % (AUTO) 25.6 % (22.0-44.0); MEAN CORPUSCULAR HEMOGLOBIN 26.8 pg (26.0-34.0); MEAN CORPUSCULAR VOLUME 81 fL (80-100); MONOCYTES # (AUTO) 0.7 K/uL (0.1-1.0); MONOCYTES % (AUTO) 17.5 % (2.0-9.0); NEUTROPHILS # (AUTO) 2.3 K/uL (1.8-7.7); PLATELET COUNT (AUTO) 195 K/uL (150-450); RED CELL DISTRIBUTION WIDTH 14.2 % (11.5-14.5)
[2021-03-19 15:26] LABS: ANION GAP 7 mmol/L (8-16); CARBON DIOXIDE 28 mmol/L (22-29); CHLORIDE 98 mmol/L (98-107); CREATININE 1.16 mg/dL (0.60-1.30); GLUCOSE,RANDOM 167 mg/dL (70-110); SODIUM SERUM 133 mmol/L (136-145); UREA NITROGEN, BLOOD 7 mg/dL (7-18)
[2021-03-19 15:27] LABS: CALCIUM, TOTAL 8.6 mg/dL (8.8-10.5)
[2021-03-19 15:32] LABS: ALANINE AMINOTRANSFERASE 49 U/L (12-78); ALBUMIN 2.1 g/dL (3.4-5.0); ALKALINE PHOSPHATASE 58 U/L (46-116); ASPARTATE AMINOTRANSFERASE 34 U/L (15-37); BILIRUBIN,TOTAL 0.4 mg/dL (0.1-1.0); TOTAL PROTEIN, SERUM 6.3 g/dL (6.4-8.2)
[2021-03-19 15:33] LABS: GLOMERULAR FILTR. RATE CALC > 60 mL/min (>60)
[2021-03-19 20:31] LABS: GLUCOMETER DEV NAME(LOC) 5N.1C; GLUCOSE,POINT OF CARE 158 MG/DL (70-110)
[2021-03-19 20:31] LABS: GLUCOMETER DEV NAME(LOC) 5N.1C; GLUCOSE,POINT OF CARE 139 MG/DL (70-110)
[2021-03-19 20:34] LABS: COVID AG,FIA SOURCE NASOPHARYNGEAL
[2021-03-19 20:41] LABS: GLUCOMETER DEV NAME(LOC) 5N.3; GLUCOSE,POINT OF CARE 157 MG/DL (70-110)
[2021-03-20] VITALS (8 sets, daily range): BP systolic 104–131; BP diastolic 60–81
[2021-03-20] MEDS: IPRATROPIUM BROMIDE 0.5 MG/2.5 ML NEB SOLUTION NEB SCH ×4 (02:49→20:32)
[2021-03-20] MEDS: ALBUTEROL SULFATE 2.5 MG/0.5 ML NEB SOLUTION NEB SCH ×4 (02:49→20:32)
[2021-03-20 06:41] LABS: GLUCOMETER DEV NAME(LOC) 5N.3; GLUCOSE,POINT OF CARE 114 MG/DL (70-110)
[2021-03-20 07:10] LABS: HEMATOCRIT 27.7 % (41-53); HEMOGLOBIN 9.4 g/dL (13.5-17.5); MEAN CORPUSCULAR HEMOGLOBIN 27.4 pg (26.0-34.0); MEAN CORPUSCULAR VOLUME 81 fL (80-100); PLATELET COUNT (AUTO) 166 K/uL (150-450); RED BLOOD CELL COUNT(AUTO) 3.44 MIL/uL (4.50-5.90); RED CELL DISTRIBUTION WIDTH 14.1 % (11.5-14.5)
[2021-03-20 07:29] LABS: ALANINE AMINOTRANSFERASE 39 U/L (12-78); ALBUMIN 1.8 g/dL (3.4-5.0); ALKALINE PHOSPHATASE 51 U/L (46-116); ANION GAP 8 mmol/L (8-16); ASPARTATE AMINOTRANSFERASE 30 U/L (15-37); BILIRUBIN,TOTAL 0.3 mg/dL (0.1-1.0); CALCIUM, TOTAL 8.2 mg/dL (8.8-10.5); CARBON DIOXIDE 28 mmol/L (22-29); CHLORIDE 100 mmol/L (98-107); CREATININE 1.03 mg/dL (0.60-1.30); GLOMERULAR FILTR. RATE CALC > 60 mL/min (>60); GLUCOSE,RANDOM 121 mg/dL (70-110); SODIUM SERUM 136 mmol/L (136-145); TOTAL PROTEIN, SERUM 5.3 g/dL (6.4-8.2); UREA NITROGEN, BLOOD 6 mg/dL (7-18)
[2021-03-20] MEDS: FAMOTIDINE 10 MG/ML 2 ML VIAL IVP SCH (08:52)
[2021-03-20] MEDS: ENOXAPARIN SODIUM 80 MG/0.8 ML PF SYRINGE SQ SCH ×2 (08:52→20:46)
[2021-03-20] MEDS: MULTIVITAMINS, THERAPEUTIC TABLET PO SCH (08:52)
[2021-03-20] MEDS: SENNA 187 MG TABLET PO SCH (08:52)
[2021-03-20 11:24] LABS: BAND NEUTROPHILS % (MANUAL) 1 % (0-5); EOSINOPHILS % (MANUAL) 6 % (1-6); LYMPHOCYTES % (MANUAL) 40 % (22-44); MONOCYTES % (MANUAL) 12 % (2-9); SEGMENTED NEUTROPHILS % 41 % (40-70)
[2021-03-20 22:21] LABS: GLUCOMETER DEV NAME(LOC) 5N.1C; GLUCOSE,POINT OF CARE 110 MG/DL (70-110)
[2021-03-21] MEDS: IPRATROPIUM BROMIDE 0.5 MG/2.5 ML NEB SOLUTION NEB SCH ×3 (01:56→14:00)
[2021-03-21] MEDS: ALBUTEROL SULFATE 2.5 MG/0.5 ML NEB SOLUTION NEB SCH ×3 (01:57→14:00)
[2021-03-21 06:20] LABS: EOSINOPHILS % (AUTO) 2.5 % (1.0-6.0); HEMATOCRIT 29.5 % (41-53); LYMPHOCYTES # (AUTO) 1.6 K/uL (1.0-4.8); MEAN CORPUSCULAR HEMOGLOBIN 27.2 pg (26.0-34.0); MEAN CORPUSCULAR HGB CONC 33.8 G/dL (31.0-37.0); MEAN CORPUSCULAR VOLUME 81 fL (80-100); MONOCYTES # (AUTO) 0.7 K/uL (0.1-1.0); MONOCYTES % (AUTO) 15.4 % (2.0-9.0); NEUTROPHILS % (AUTO) 45.1 % (40.0-70.0); PLATELET COUNT (AUTO) 182 K/uL (150-450); RED BLOOD CELL COUNT(AUTO) 3.66 MIL/uL (4.50-5.90); RED CELL DISTRIBUTION WIDTH 14.2 % (11.5-14.5)
[2021-03-21 06:45] LABS: ALANINE AMINOTRANSFERASE 41 U/L (12-78); ALBUMIN 1.9 g/dL (3.4-5.0); ALKALINE PHOSPHATASE 54 U/L (46-116); ANION GAP 10 mmol/L (8-16); ASPARTATE AMINOTRANSFERASE 25 U/L (15-37); BILIRUBIN,TOTAL 0.4 mg/dL (0.1-1.0); CALCIUM, TOTAL 8.4 mg/dL (8.8-10.5); CARBON DIOXIDE 27 mmol/L (22-29); CHLORIDE 101 mmol/L (98-107); GLUCOSE,RANDOM 114 mg/dL (70-110); SODIUM SERUM 138 mmol/L (136-145); TOTAL PROTEIN, SERUM 5.9 g/dL (6.4-8.2); UREA NITROGEN, BLOOD 5 mg/dL (7-18)
[2021-03-21 07:11] LABS: GLOMERULAR FILTR. RATE CALC > 60 mL/min (>60)
[2021-03-21 07:53] VITALS: BP 115/59
[2021-03-21 08:01] LABS: GLUCOMETER DEV NAME(LOC) 5N.1C; GLUCOSE,POINT OF CARE 101 MG/DL (70-110)
[2021-03-21] MEDS: FAMOTIDINE 10 MG/ML 2 ML VIAL IVP SCH (08:27)
[2021-03-21] MEDS: SENNA 187 MG TABLET PO SCH (08:28)
[2021-03-21] MEDS: MULTIVITAMINS, THERAPEUTIC TABLET PO SCH (08:28)
[2021-03-21] MEDS: ENOXAPARIN SODIUM 80 MG/0.8 ML PF SYRINGE SQ SCH (08:29)
[2021-03-21 10:45] VITALS: BP 112/52
[2021-03-21 19:56] LABS: GLUCOMETER DEV NAME(LOC) 5N.3; GLUCOSE,POINT OF CARE 122 MG/DL (70-110)
[2021-03-21 19:56] LABS: GLUCOMETER DEV NAME(LOC) 5N.3; GLUCOSE,POINT OF CARE 133 MG/DL (70-110)
== END 2021-03-21 13:55 | DRG 208 ==
LOC: EMS 04:47 → 6N 14:52 → 5S 17:25 → ICU 03-05 18:50 → 5N 03-09 16:44
PROVIDERS: ADMIT Hospitalist; ATTEND Hospitalist
PROC: 0W9930Z Drainage of Right Pleural Cavity with Drainage Device, Percutaneous Approach (ICD-10-PCS; principal; 2021-03-03)
PROC: 5A1935Z Respiratory Ventilation, Less than 24 Consecutive Hours (ICD-10-PCS; 2021-03-03)
PROC: 0BH17EZ Insertion of Endotracheal Airway into Trachea, Via Natural or Artificial Opening (ICD-10-PCS; 2021-03-03)
PROC: 5A09357 Assistance with Respiratory Ventilation, Less than 24 Consecutive Hours, Continuous Positive Airway Pressure (ICD-10-PCS; 2021-03-03)
PROC: XW033E5 Introduction of Remdesivir Anti-infective into Peripheral Vein, Percutaneous Approach, New Technology Group 5 (ICD-10-PCS; 2021-03-05)
PROC: 0W9B30Z Drainage of Left Pleural Cavity with Drainage Device, Percutaneous Approach (ICD-10-PCS; 2021-03-06)
DX: J93.9 Pneumothorax, unspecified (principal); U07.1 COVID-19; J96.01 Acute respiratory failure with hypoxia; J12.82 Pneumonia due to coronavirus disease 2019; E44.0 Moderate protein-calorie malnutrition; I82.441 Acute embolism and thrombosis of right tibial vein; N17.9 Acute kidney failure, unspecified; G93.40 Encephalopathy, unspecified; J98.2 Interstitial emphysema; I10 Essential (primary) hypertension; D75.839 Thrombocytosis, unspecified; J30.9 Allergic rhinitis, unspecified; E78.5 Hyperlipidemia, unspecified; E11.65 Type 2 diabetes mellitus with hyperglycemia; J93.82 Other air leak; R79.89 Other specified abnormal findings of blood chemistry; K21.9 Gastro-esophageal reflux disease without esophagitis; Z90.49 Acquired absence of other specified parts of digestive tract; Z68.24 Body mass index [BMI] 24.0-24.9, adult; Z87.891 Personal history of nicotine dependence; Z79.899 Other long term (current) drug therapy
CPT/HCPCS: 71045; 71250; 76770; 80053; 81003; 82550; 82570; 82728; 82962; 83605; 83615; 83735; 83880; 84100; 84145; 84300; 84484; 85025; 85379; 85610; 85730; 86140; 87040; 87081; 92526; 92610; 93005; 93970; 94640; 94660; 94799; 97110; 97116; 97162; 97167; 97530; 97535; 99285; C9113; G0378; J1100; J1644; J1650; J2001; J2250; J2270; J2370; J2405; J2543; J3010; J3490; J7030; J7050; J7060; J7120; J8540; Q9967; 36415-L1; 36415-TC; J7613; U0003